=== PATIENT | female | born 1990 | race Caucasian/White ===

== ENCOUNTER 2023-11-20 10:04 | Oncology outpatient (recurring) (ONCR) | payer MEDICAID, SELFPAY ==
[2023-11-20 10:48] VITALS: BP 138/74; PULSE 92; RESP 18; TEMP 36.3; O2SAT 98
[2023-11-20 14:04] VITALS: BP 121/80; PULSE 90; RESP 16; TEMP 36.2; O2SAT 98
[2023-11-20 14:09] VITALS: BP 121/80; PULSE 90; RESP 16; TEMP 36.2; O2SAT 98
== END 2023-11-27 23:59 | disposition home or self-care (01) ==
LOC: ONCMED 10:05
PROVIDERS: PCP Family Medicine; Visit Provider Family Medicine
DX: C34.12 Malignant neoplasm of upper lobe, left bronchus or lung (principal); R53.83 Other fatigue; R10.11 Right upper quadrant pain; Z79.899 Other long term (current) drug therapy
CPT/HCPCS: 36415; 36430; 86850; 86900; 90384

== ENCOUNTER 2024-01-27 08:00 | Inpatient (IN) | payer MEDICAID, SELFPAY ==
[2024-01-27] VITALS (74 sets, daily range): BP systolic 107–168; BP diastolic 59–91; PULSE 73–125; RESP 16; TEMP 36.6; O2SAT 97–100; BMI 43.2
[2024-01-27 08:10] LABS: Basophils % 0.3 %; Eosinophils # 0.1 10^3/uL (0.0-0.8); Eosinophils % 0.6 %; Hematocrit 36.3 % (36-47); Lymphocytes # 2.7 10^3/uL (0.8-4.8); Lymphocytes % 22.9 %; Mean Corpuscular HGB Conc 32.8 g/dL (30-55); Mean Corpuscular Hemoglobin 27.5 pg (27-33); Mean Platelet Volume 9.7 fL (7.4-10.4); Monocytes # 0.6 10^3/uL (0.2-0.9); Monocytes % 5.3 %; Neutrophils # 8.23 10^3/uL (1.8-7.7); Neutrophils % 70.4 %; Nucleated Red Blood Cells % 0 %; Platelet Count 311 10^3/cmm (157-399); Red Blood Count 4.32 10^6/uL (3.85-5.65); White Blood Count 11.69 10^3/uL (3.29-11.43)
[2024-01-27] MEDS: lactated ringers 1,000 ML 999 ML IV (10:30)
--- NOTE | 2024-01-27 11:10 | ANES.PROC ---
Anesthesia Procedures Procedure/Date: 01/30/24 Epidural: Time Out Performed: Yes Consents Signed: Procedure Consent Consent: requested by attending/covering physician, from patient, from other, risks and benefits reviewed and patient agrees to proceed Lumbar Level: L2-L3 Epidural position: sitting Epidural procedure: sterile prep of area, 1% lidocaine to numb the area, 18 g needle, negative for paresthesia passed, neg for paresthesia, test dose given, 1.5% xylocaine 1:200k epi (5), 0.2% Ropivacaine bolus ml (5), placed PCEA, no systemic response, sterile dressing applied, L.U.D. no apparent complications and 0.2% Ropiavacaine @ mls/hr (10) Additional Comments: KB at 6 cm, threaded to 13 cm, patient reported subsequent contraction pain level went from 5 to 2/10 Of note patient's supraspinous and interspinous ligaments were resistant to needle advancement, very brittle when passing through these layer
[2024-01-27] MEDS: ROPivacaine syringe 100 MG/50 ML SYRINGE 10 MG EPIDURAL ×3 (11:25→18:30)
[2024-01-27] MEDS: dextrose 5%-lactated ringers 1,000 ML 125 ML IV (11:27)
--- NOTE | 2024-01-27 11:33 | ANES.PREANE2 ---
Pre-Anesthetic Assessment Height/Weight: Height 1.68 m Weight 121.563 kg Pulse BP Pulse Ox O2 Del Method 100 134/72 98 Room Air 01/27/24 11:30 01/27/24 11:30 01/27/24 11:30 01/27/24 07:37 None Familial anesthetic complications: NOne Social No alcohol and No tobacco Exam alert, oriented x 3, clear to auscultation bilaterally and regular rate & rhythm Airway Mallampati: Class III Dentition: full Anesthetic Plan ASA status: 2 Anesthesia: Regional (specify below) Risk of > 500 ml blood loss (7ml/kg in children): No Other Pertinent Information KB at 6 cm, threaded to 13 cm, patient reported subsequent contraction pain level went from 5 to 2/10 Of note patient's supraspinous and interspinous ligaments were resistant to needle advancement, very brittle when passing through these layers Medications/Allergies Current Medications Generic Name Dose Route Start Last Admin Trade Name Freq PRN Reason Stop Dose Admin Dextrose/Lactated Ringer's 1,000 mls @ 125 mls/hr 01/27/24 07:45 01/27/24 11:27 Dextrose 5%-Lactated Ringers IV 125 mls/hr .Q8H GEM Administration Lactated Ringer's 1,000 mls @ 999 mls/hr 01/27/24 10:23 01/27/24 10:30 Lactated Ringers IV 999 mls/hr .Q1H1M PRN Administration See label comments Ropivacaine 100 mg in 50 mls @ 10 mls/hr 01/27/24 10:30 01/27/24 11:25 Naropin Syringe EPIDURAL 10 mls/hr .Q5H GEM Administration FOR[facility]LY [facility], [facility] Anesthesia Female Reproductive History : 3 Data Anesthesia 01/27/24 07:55 Short CBC 01/27/24 Range/Units 07:55 WBC 11.69 H (3.29-11.43) 10^3/uL Hgb 11.90 (11.27-16.99) g/dL Hct 36.3 (36-47) % MCV 84.0 L (85-98) fl Plt Count 311 (157-399) 10^3/cmm Neut % (Auto) 70.4 % Neut # (Auto) 8.23 H (1.8-7.7) 10^3/uL Blood Bank 01/27/24 07:55 Blood Type A Negative Rho(D) Type Rh negative Antibody Screen Negative Cardiac Studies: No Data to Display
[2024-01-27] MEDS: ondansetron 2 mg/ML SDV 2 mL 4 MG IVP ×2 (12:14→16:10)
[2024-01-27] MEDS: oxytocin 30 UNIT/500 ML BAG IV (14:19)
--- NOTE | 2024-01-27 19:05 | PM.OPHPUD ---
Labor & Delivery H&P Update Date of Procedure: January 27, 2024 Date H&P Performed: 01/27/24 Changes to previous documentation: Spontaneous rupture of membranes. Consistent contractions. Admission Diagnosis: 33-year-old 3 para 2-0-0-2 at 38 weeks and 5 days presenting with spontaneous rupture membranes and active labor Primary indication for procedure: Spontaneous rupture membrane Planned procedure: Vaginal delivery Other information: The patient is a relatively healthy female who presents to the hospital with spontaneous rupture membranes. Her has been relatively unremarkable. She has struggled with some chronic depression and has been on fluoxetine for that. Otherwise her labs have been relatively unremarkable as well. Her blood type is A-. Her antibody screen is negative. She passed her 1 hour glucose screen. She is rubella immune. Her GBS status is negative. The remainder of her infectious disease profile was within normal limits. The patient arrived to the hospital after she had presumed rupture of membranes about an hour prior to arrival to the hospital. It occurred at about 6:00 in the morning. She was found to be grossly ruptured upon arrival to hospital. Related Problem List Diagnoses (1) 38 weeks gestation of : A&P Assessment and plan (1) 38 weeks gestation of : Anticipate spontaneous vaginal delivery. We will augment her labor as needed. Status: Acute
--- NOTE | 2024-01-27 19:20 | PM.DELIVERY ---
Delivery Note: Date of delivery: January 27, 2024 Pre-delivery diagnoses: 33-year-old 3 para 2-0-0-2 at 38 weeks estimated gestational age. Post-delivery diagnoses: Status post spontaneous vaginal delivery Procedure: Jimy Gan Estimated blood loss (mL): 75 Pre-Delivery Course: The patient presented to the hospital with spontaneous rupture membranes at about 6:00 in the morning. She was having intermittent contractions. She elected to have an epidural. She was making minimal change and having spaced out contractions after epidural. Pitocin was added. She progressed to complete without difficulty. Delivery: DELIVERY: The patient progressed to complete without difficulty. She delivered a female with a weight of 8 pounds 4 ounces with Apgars of 8, 9. The baby was delivered from the ORTIZ position and placed on the mother's abdomen. The cord was then clamped and cut. There was no nuchal cord. There was no meconium. The placenta and 3 vessel cord were delivered intact shortly thereafter. The perineum and vaginal vault were carefully examined. A relatively small posterior midline second-degree tear was noted. 3-0 Vicryl was used to repair the tear in usual fashion. Both the mother and the baby were in stable condition. A&P Assessment and plan (1) 38 weeks gestation of : I anticipate routine care. (2) Spontaneous vaginal delivery: Coding Level of Care Code Acute Code for Chg Fwd Diagnoses 38 weeks gestation of Z3A.38 Spontaneous vaginal delivery O80
[2024-01-27] MEDS: ibuprofen 800 mg tablet PO (20:14)
[2024-01-28 00:27] VITALS: BP 155/78; PULSE 97; TEMP 36.5
[2024-01-28] MEDS: fluoxetine 20 mg Capsule 60 MG PO (00:50)
[2024-01-28 02:29] VITALS: BP 151/77; PULSE 89
[2024-01-28 04:29] VITALS: BP 134/67; PULSE 90; RESP 16; TEMP 36.6
--- NOTE | 2024-01-28 06:05 | PM.OBGYDC ---
Discharge Providers PRODUCT AMBASS[employer]OR Date of Admission: 01/27/24 08:00 Date of Discharge: 01/28/24 Attending Provider at Admission: Jimy Gan MD Attending Provider at Discharge: Jimy Gan MD Primary Care Provider: Jimy Gan MD Diagnoses at Discharge Discharge Diagnosis (1) 38 weeks gestation of : Status: Acute (2) Spontaneous vaginal delivery: Status: Acute Reason for Visit Reason for Visit: possible SROM, contractions Hospital Course Hospital Course The patient presented to the hospital the day of delivery with spontaneous rupture membranes. Upon evaluation at the hospital she was noted to have grossly ruptured membranes. She had consistent contractions became more painful. She elected to have an epidural. Her contractions spaced out and she was placed on augmentation of Pitocin she then progressed to complete without difficulty. She pushed through 3-4 contractions and delivered a baby without difficulty. She was noted to have a posterior midline second-degree tear. It was repaired in the usual fashion with 3-0 Vicryl. Her course was unremarkable. Her bleeding was within normal limits. She bottle-fed her baby. Her pain was well-controlled. There were no concerns. Information Peripartum Data: Delivery Method: Vaginal Physical Exam Narrative: The patient is alert. She appears comfortable. Her heart has a regular rate and rhythm with no murmurs appreciated. Lungs are clear to auscultation bilaterally. Her fundus is firm and below the umbilicus. Urinary Catheter Management: Saul: Cath Placed During This Visit: yes Reason for Continuing Indwelling Catheter: Accurate Measurement of Urinary Output in Critically Ill Patients Urinary Catheter Date of Insertion: 01/27/24 Urinary Catheter Time of Insertion: 11:54 Discharge Data Studies Completed and Pending Pending at discharge Category Date Time Status Hemagram Timed Lab 01/28/24 07:24 Uncollected Laboratory Results WBC 11.69 10^3/uL (3.29-11.43) H 01/27/24 07:55 RBC 4.32 10^6/uL (3.85-5.65) 01/27/24 07:55 Hgb 11.90 g/dL (11.27-16.99) 01/27/24 07:55 Hct 36.3 % (36-47) 01/27/24 07:55 MCV 84.0 fl (85-98) L 01/27/24 07:55 MCH 27.5 pg (27-33) 01/27/24 07:55 MCHC 32.8 g/dL (30-55) 01/27/24 07:55 RDW 13.0 % (12.1-15.1) 01/27/24 07:55 Plt Count 311 10^3/cmm (157-399) 01/27/24 07:55 MPV 9.7 fL (7.4-10.4) 01/27/24 07:55 Neut % (Auto) 70.4 % 01/27/24 07:55 Lymph % (Auto) 22.9 % 01/27/24 07:55 [place] % (Auto) 5.3 % 01/27/24 07:55 Eos % (Auto) 0.6 % 01/27/24 07:55 Baso % (Auto) 0.3 % 01/27/24 07:55 Neut # (Auto) 8.23 10^3/uL (1.8-7.7) H 01/27/24 07:55 Lymph # (Auto) 2.7 10^3/uL (0.8-4.8) 01/27/24 07:55 [place] # (Auto) 0.6 10^3/uL (0.2-0.9) 01/27/24 07:55 Eos # (Auto) 0.1 10^3/uL (0.0-0.8) 01/27/24 07:55 Baso # (Auto) 0.0 10^3/uL (0.0-0.1) 01/27/24 07:55 Nucleated RBC % (auto) 0 % 01/27/24 07:55 Nucleated RBCs # 0.0 /100WBC 01/27/24 07:55 Blood Type A Negative 01/27/24 07:55 Rho(D) Type Rh negative 01/27/24 07:55 Antibody Screen Negative 01/27/24 07:55 Vitals Last Vital Signs Temp 97.8 F 01/28/24 04:29 Pulse 90 01/28/24 04:29 Resp 16 01/28/24 04:29 BP 134/67 01/28/24 04:29 Pulse Ox 98 01/27/24 11:50 O2 Del Method Room Air 01/28/24 04:29 Results Labs OB ([facility]): Obstetrics US 12/18/23 Blood Type A Negative 01/27/24 Antibody Screen Negative 01/27/24 Hct 36.3 % (36-47) 01/27/24 Hgb 11.90 g/dL (11.27-16.99) 01/27/24 Rho(D) Type Rh negative 01/27/24 Plt Count 311 10^3/cmm (157-399) 01/27/24 Discharge Plan Discharge Patient Disposition: Home Condition: Stable Prescriptions: New ibuprofen 800 mg Tablet 800 mg PO TID Qty: 45 0RF Continued fluoxetine 60 mg Tablet 60 mg PO DAILY [id number] 1 mg Tablet 1 tab PO 1XD Singulair 10 mg Tablet 10 mg PO DAILY Zyrtec 10 mg Capsule 10 mg PO DAILY Discontinued lansoprazole [Prevacid] 30 mg Capsule,Delayed Release(Dr/Ec) 30 mg PO DAILY Discharge Orders: Discharge Order (Routine); Ordered 01/28/24 Ordered By: Jimy Gan Discharge Diet: Usual diet Discharge Activity: Limit activity as instructed Patient Instructions: Opioid Safety Discharge Attestations PRODUCT AMBASSADOR Time Spent in Discharge Care*: less than 30 min Coding Level of Care Code Acute Code for Chg Fwd Diagnoses 38 weeks gestation of Z3A.38 Spontaneous vaginal delivery O80
[2024-01-28 07:50] LABS: Hematocrit 30.6 % (36-47); Mean Corpuscular HGB Conc 33.3 g/dL (30-55); Mean Corpuscular Hemoglobin 27.3 pg (27-33); Mean Platelet Volume 9.7 fL (7.4-10.4); Platelet Count 278 10^3/cmm (157-399); Red Blood Count 3.73 10^6/uL (3.85-5.65); White Blood Count 16.11 10^3/uL (3.29-11.43)
--- NOTE | 2024-01-28 08:05 | P.ANESPOST_ITS ---
Inpatient post-anesthesia follow up: Airway intact: Yes Vital signs: Temperature 97.7 F Pulse Rate 88 Respiratory Rate 16 Blood Pressure 128/81 Pulse Oximetry 96 Oxygen Delivery Me thod Room Air Oxygen Flow Rate Fraction of Inspir ed Oxygen Hydration adequate: Yes Pain level: 1 Mental status: Baseline Epidural Start/End: Epidural Start Date: 01/27/24 Epidural Start Time: 11: 11 Epidural End Date: 01/27/24 Epidural End Time: 22:52
[2024-01-28] MEDS: ibuprofen 800 mg tablet PO ×3 (08:17→20:24)
[2024-01-28] MEDS: PRENATAL VIT NO.130/IRON/FOLIC 1 EACH TABLET PO (08:18)
[2024-01-28] MEDS: docusate sodium 100 mg Capsule PO ×2 (08:18→20:24)
[2024-01-28 14:40] VITALS: BP 133/86; PULSE 96; RESP 16; TEMP 36.6; TEMP 36.7; O2SAT 98
[2024-01-28 21:18] VITALS: BP 128/81; PULSE 88; RESP 16; TEMP 36.5; O2SAT 96
[2024-01-28 21:20] VITALS: BP 128/81; PULSE 88; RESP 16; TEMP 36.5; O2SAT 96
== END 2024-01-28 21:13 | disposition home or self-care (01) | DRG 807 ==
LOC: OPOB 17:19 → OBGYN 17:19
PROVIDERS: Admitting Provider Family Medicine; PCP Family Medicine; Visit Provider Family Medicine
DX: O99.344 Other mental disorders complicating childbirth (principal); Z37.0 Single live birth; F32.A Depression, unspecified; O70.1 Second degree perineal laceration during delivery; Z3A.38 38 weeks gestation of pregnancy
CPT/HCPCS: 36415; 51702; 59025; 59409; 83986; 85025; 85027; 86850; 86900; 96374; 96376; 99211; J2405; J2590; J2795; J7120; J7121